=== PATIENT | male | born 1995 | race Two or more races ===

== ENCOUNTER 2019-01-29 10:25 | Emergency (ER) | payer MEDICAID ==
[~2019-01-29] VITALS: Ht 172.7 cm; Wt 74.8 kg
[2019-01-29 10:34] VITALS: BP 111/61
== END 2019-01-29 13:13 | disposition home or self-care (01) ==
LOC: ER 10:25
DX: H10.32 Unspecified acute conjunctivitis, left eye (principal); F17.210 Nicotine dependence, cigarettes, uncomplicated